=== PATIENT | female | born 1945 | race Caucasian/White ===

== ENCOUNTER 2017-01-31 07:30 | Inpatient (IN) | payer MEDICARE ==
--- NOTE | 2017-02-03 16:55 | HP ---
HISTORY AND PHYSICAL: DATE OF SURGERY: 02/09/17 PROCEDURE: Left total knee arthroplasty. CHIEF COMPLAINT: Left knee pain. HISTORY OF PRESENT ILLNESS: Ms. Turner is a 71-year-old female with complaints of left knee pain se condary to advanced osteoarthritis. She has failed conservative management and has elected to proce ed with a left total knee arthroplasty which is scheduled for 02/09/17. PAST MEDICAL HISTORY: Hypertension, asthma, high cholesterol, obesity, sleep apnea, CHF, diabetes, and hypothyroidism. PAST SURGICAL HISTORY: ORIF of the left elbow, hysterectomy, , bladder repair, hiatal malgorzata ia, left knee arthroscopy, bilateral lower extremity vein surgery, tonsillectomy, and appendectomy. CURRENT MEDICATIONS: 1. Lisinopril. 2. Levothyroxine. 3. Atorvastatin calcium. 4. Bumetanide. 5. Glipizide 10 mg twice a day. 6. Proctozone. 7. Lantus 14 units once a day. ALLERGIES: None. FAMILY HISTORY: Heart disease, diabetes, hypertension, lung cancer, rheumatoid arthritis. SOCIAL HISTORY: She is a 71-year-old female. She lives with her . She does not smoke or Rivalry drugs. Uses very occasional alcohol. REVIEW OF SYSTEMS: A complete 14-point review of systems was reviewed with the patient, was positiv e for diabetes and thyroid disease, as well as some mild shortness of breath with walking long dista nces. She denies any anesthesia problems, DVT, PE, hepatitis C, HIV or MRSA. PHYSICAL EXAMINATION GENERAL: She is a 71-year-old obese female. She is in no acute distress. VITAL SIGNS: She stands 5 feet 8 inches tall, weighs 268 pounds. Her blood pressure is 124/82. He r heart rate is 82. HEENT: Normocephalic, atraumatic. NECK: Supple. No palpable lymph nodes. Trachea is midline. PULMONARY: The lungs are clear to auscultation bilaterally. CARDIO: Regular rate and rhythm. Strong S1, S2. ABDOMEN: Soft, nontender, nondistended. NEUROLOGIC: She is alert and oriented x3. Cranial nerves II through XII are intact. MUSCULOSKELETAL: Left lower extremity, the skin is intact. She has tenderness over the medial and lateral joint line. She has [id number] joint effusion. She has full range of motion of the le ft knee. Her lower extremity muscle group strengths are intact at 5/5. She has 2+ dorsalis pedis p ulses and intact sensation. ASSESSMENT AND PLAN: Ms. Turner is a 71-year-old female with complaints of left knee pain secondar y to advanced osteoarthritis. She has failed conservative management and has elected to proceed wit h left total knee arthroplasty which is scheduled for 02/09/[address] Ortiz discussed the risks and the benefits of the surgery at today's visit. All of her questions were answered. Per cocet, Coumadin, and Colace were all sent to her pharmacy for DVT prophylaxis and pain control. A p rescription for a 4-wheeled walker was also prescribed for walking assistance following the surgery. She will follow up with Dr. Ortiz 10 to 14 days after the surgery. KHARI MAYNARD [id number]/[facility] #: [id number]
[2017-02-09] MEDS ORDERED: Levalbuterol 0.63MG/3ML NEB INH ONE (06:00)
[2017-02-09] MEDS ORDERED: Famotidine IV* 10 MG/ML 2 ML (20 mg) IV ONE (06:00)
[2017-02-09] MEDS ORDERED: Buffered Lidocaine 1% SYRIN* 3 ML/SYR SYRINGE INTRADERM ONE (06:00)
[2017-02-09] MEDS ORDERED: Metoclopramide TAB* 10 MG PO ONE (06:00)
[2017-02-09] MEDS ORDERED: Famotidine IV* 10 MG/ML 2 ML (20 mg) ONE (11:14)
[2017-02-09] MEDS ORDERED: Levalbuterol 1.25MG/0.5ML NEB ONE (11:14)
[2017-02-09] MEDS ORDERED: ceFAZolin 2 GM PREMIX(*) 2 GM/50 ML BAG IVPB ONE (11:14)
[2017-02-09] MEDS ORDERED: ceFAZolin 1 GM in Dextrose (*) 1 GM/50 ML BAG IVPB ONE (11:14)
[2017-02-09] MEDS ORDERED: Metoclopramide TAB* 10 MG ONE (11:14)
[2017-02-09] MEDS ORDERED: KETAMINE HCL* 50 MG/ML 10 ML VIAL ONE (14:16)
[2017-02-09] MEDS ORDERED: Propofol* 10 MG/ML 20 ML BTL IV PUSH ONE (14:16)
[2017-02-09] MEDS ORDERED: Ketorolac INJ* 30 MG/ML 1 ML VIAL ONE (14:16)
[2017-02-09] MEDS ORDERED: fentaNYL* 50 MCG/ML 2 ML VIAL (100 MCG VIAL) ONE ×2 (14:16→18:18)
[2017-02-09] MEDS ORDERED: Bupivacaine 0.5% SDV PF* 30 ML VIAL ONE ×2 (14:16→16:12)
[2017-02-09] MEDS ORDERED: Midazolam* 1 MG/ML 5 ML VIAL (5 MG) ONE (14:16)
[2017-02-09] MEDS ORDERED: Morphine PF AMP (0.5MG/ML)* 5 MG/10 ML AMP ONE (14:16)
[2017-02-09] MEDS ORDERED: Dexamethasone IV* 4 MG/ML 1 ML (4 MG) ONE (14:16)
[2017-02-09] MEDS ORDERED: Lidocaine 2% PF* 5 ML VIAL ONE (14:16)
[2017-02-09] MEDS ORDERED: Ondansetron INJ* 2 MG/ML VIAL ONE (14:16)
[2017-02-09] MEDS ORDERED: oxyCODONE/Acetamin 5/325 MG* TAB PO PRN (15:54)
[2017-02-09] MEDS ORDERED: Bisacodyl SUPP* 10 MG SUPP PR PRN (15:54)
[2017-02-09] MEDS ORDERED: Polyethylene Glycol 3350* 17 GM PACKET PO PRN (15:54)
[2017-02-09] MEDS ORDERED: Ondansetron TAB* 4 MG PO PRN (15:54)
[2017-02-09] MEDS ORDERED: oxyCODONE TAB* 5 MG TAB PO PRN (15:54)
[2017-02-09] MEDS ORDERED: Acetaminophen TAB* 325 MG PO PRN (15:54)
[2017-02-09] MEDS ORDERED: diPHENhydraMINE IV* 50 MG/ML 1 ml VIAL (BENADRYL) IV PRN (15:54)
[2017-02-09] MEDS ORDERED: LACTULOSE* 30 ML UDC PO PRN (15:54)
[2017-02-09] MEDS ORDERED: Morphine INJ* 2 MG/ML 1 ML SYRINGE IV PRN (15:54)
[2017-02-09] MEDS ORDERED: Cisatracurium* 2 MG/ML MDV 5 ML ONE (16:06)
[2017-02-09] MEDS ORDERED: fentaNYL* 50 MCG/ML 5 ML VIAL (250 MCG VIAL) ONE ×2 (16:07→19:00)
[2017-02-09] MEDS ORDERED: Levalbuterol HFA INHALER* 1 PUFF MDI ONE (16:31)
[2017-02-09] MEDS ORDERED: hydrALAZINE IV* 20 MG/ML VIAL ONE (17:27)
[2017-02-09] MEDS ORDERED: Levalbuterol 0.63MG/3ML NEB INH PRN (17:32)
[2017-02-09] MEDS ORDERED: HYDROmorphone* 1 MG/ML 1 ML SYR IV PRN (17:32)
[2017-02-09] MEDS ORDERED: Ondansetron INJ* 2 MG/ML VIAL IV PRN (17:32)
[2017-02-09] MEDS ORDERED: Atorvastatin* 10 MG TAB PO SCH (18:00)
[2017-02-09] MEDS ORDERED: HYDROmorphone* 1 MG/ML 1 ML SYR ONE (18:59)
[2017-02-09] MEDS: fentaNYL* 50 MCG/ML 2 ML VIAL (100 MCG VIAL) IV PRN ×4 (19:01→20:10)
[2017-02-09] MEDS ORDERED: Dextrose 50% Syringe 50 ML* 25 GM/50 ML SYRINGE IV PUSH PRN (19:35)
[2017-02-09] MEDS ORDERED: oxyCODONE/Acetamin 5/325 MG* TAB ONE (19:49)
[2017-02-09] MEDS: oxyCODONE/Acetamin 5/325 MG* TAB PO PRN (19:50)
--- NOTE | 2017-02-09 20:06 | RAD ---
Indication: Post LEFT total knee replacement. Comparison: November 01, 2016 Technique: Portable AP and cross table lateral views LEFT knee. Report: Status post LEFT total knee replacement. Anterior surgical drain in place. Post-op fluid and gas is seen in the joint space and anterior subcutaneous tissues. Alignment is anatomic. No periprosthetic fracture evident. IMPRESSION: Normal post-op appearance following LEFT total knee replacement.
[2017-02-09] MEDS ORDERED: Insulin GLARGINE(*) 1 UNITS UNIT SUBCUT SCH (21:00)
[2017-02-09] MEDS ORDERED: Warfarin TAB(*) 6 MG PO ONE (22:00)
[2017-02-09] MEDS: glipiZIDE TAB* 5 MG PO SCH (22:13)
[2017-02-09] MEDS: Docusate CAP* 100 MG PO SCH (22:13)
[2017-02-09] MEDS: Albuterol HFA INHALER* 8 gm MDI INH SCH (22:14)
[2017-02-09] MEDS: ceFAZolin 1 GM in Dextrose (*) 1 GM/50 ML BAG IVPB SCH (22:15)
[2017-02-09] MEDS: Atorvastatin* 10 MG TAB PO SCH (22:26)
--- NOTE | 2017-02-10 00:34 | CONS ---
MEDICAL CONSULTATION: DATE OF CONSULT: 02/09/17 PRIMARY CARE PROVIDER: Dr. Kramer. PRIMARY SENIOR RESEARCH PROJECT MANAGER: Dr. Hughes. REQUESTING PROVIDER: Dr. Scarlett Ortiz. CONSULTING PROVIDER: KHARI Ortiz. SUPERVISING PHYSICIAN: Dr. Rikki Hamilton. CHIEF COMPLAINT: Status post left total knee replacement. HISTORY OF PRESENT ILLNESS: This is a 71-year-old female with a fairly complicated medical history including poorly controlled insulin-dependent diabetes, obstructive sleep apnea, morbid obesity, hypothyroidism, diabetic neuropathy, hypertension, hyperlipidemia, and mild persistent asthma who presented for left total knee arthroplasty with Dr. Ortiz earlier today. Dr. Ortiz has requested consultation from hospitalist group to aid in medical co- management during her postoperative recovery. The patient underwent general anesthesia and is still quite lethargic at the time of interview. She is reporting pain in her knee. Denies chest pain, shortness of breath, abdominal pain, nausea, or vomiting. She was evaluated by both her primary care provider as well as bander and cellophaner helper machine, Dr. Hughes, preoperatively without acute concerns. In regards to her cardiac history, she had an EKG done preoperatively that showed some poor R-wave progression and was therefore referred for evaluation with Dr. Hughes. She underwent cardiac catheterization in 2002, which was unremarkable and has had no recent cardiac symptoms. Dr. Hughes did not recommend preoperative stress testing. PAST MEDICAL HISTORY: 1. Insulin-dependent diabetes - poorly controlled. 2. Morbid obesity. 3. Hypertension. 4. Hyperlipidemia. 5. Asthma - mild persistent. 6. Obstructive sleep apnea, compliant with CPAP. 7. Hypothyroidism. 8. Diabetic neuropathy. SURGICAL HISTORY: 1. Left elbow ORIF. 2. Hysterectomy. 3. . 4. Bladder repair. 5. Hiatal hernia. 6. Left knee arthroscopy. 7. Bilateral vein surgery. 8. Tonsillectomy. 9. Appendectomy. HOME MEDICATIONS: 1. Levothyroxine 50 mcg p.o. on Monday, Monday, , and Monday and 75 mcg on Monday, Monday, Monday. 2. Albuterol 2 puffs inhaled at bedtime. 3. Aspirin 325 mg p.o. daily. 4. Atorvastatin 10 mg p.o. daily. 5. Bumex 1 mg p.o. daily. 6. Vitamin D3 1000 units p.o. daily. 7. Flexeril 10 mg p.o. twice daily as needed for pain. 8. Glipizide 10 mg p.o. b.i.d. 9. Hydrocortisone 2.5% cream applied topically as needed. 10. Ibuprofen 800 mg p.o. daily. 11. Lantus 14 units subcu daily. 12. Lisinopril 5 mg p.o. daily. 13. Multivitamin 1 tablet p.o. daily. SOCIAL HISTORY: The patient has no history of smoking or alcohol consumption on a regular basis. REVIEW OF SYSTEMS: As noted above in HPI and otherwise negative. PHYSICAL EXAM: Most recent vitals: Temperature 96.8 degrees Fahrenheit, pulse 78 beats per minute, respiratory rate 15, oxygen saturation 96% on 5 L, and blood pressure 148/74 mmHg. General: This is a pleasant 71-year-old female who is in the recovery area who appears lethargic, but responds appropriately to questions. HEENT: Head is normocephalic, atraumatic with moist mucous membranes. Cardiovascular: Heart has a regular rate and rhythm without murmurs , rubs, or gallops. Respiratory: Lungs are clear to auscultation without wheezes, crackles, or rhonchi. Abdomen: Soft and nontender to palpation. Extremities: Trace edema. Distal pulses intact. Skin: Limited exam shows no concerning rashes or lesions. Psych: The patient is alert and appropriately oriented. LABORATORY EVALUATION: Reviewed labs from 02/03/17 which were essentially within normal limits including a CBC and a basic metabolic panel. Preop hemoglobin of 13.6 g/dL and a creatinine of 0.84. IMAGING: Preop EKG showed sinus rhythm with poor R-wave progression. ASSESSMENT AND PLAN: This is a 71-year-old female with a history of morbid obesity, insulin-dependent diabetes, diabetic neuropathy, hypothyroidism, obstructive sleep apnea, hypertension, hyperlipidemia, and mild persistent asthma who underwent left total knee replacement by Dr. Ortiz earlier today. Hospitalist group has been asked to consult for medical co-management postoperatively. 1. Status post left total knee replacement - management per Orthopedic Surgery group including pain management, discharge planning, and DVT prophylaxis. 2. Hypertension - the patient is noted to be intermittently hypertensive postoperatively, but blood pressure appears to be responding well to medical management of her pain. Recommend holding lisinopril in the morning and may be able to resume on postop day 2. 3. Insulin-dependent diabetes - last hemoglobin A1c from 01/03/17 shows result of 9.3% indicating poor control. The patient reports that her fasting blood glucose is between 100 and 120 mg/dL. We will continue her home dose of Lantus as well as sliding scale Humalog during her hospital stay. Hold glipizide. 4. Obstructive sleep apnea - the patient brought her CPAP machine with her and this has been ordered. 5. Morbid obesity with a BMI of 41. 6. Hyperlipidemia - continue statin. 7. Asthma - mild persistent. The patient uses her albuterol inhaler nightly. No wheezing appreciated on lung exam and the patient denies shortness of breath or cough. 8. Hypothyroidism: Continue levothyroxine. 9. Diabetic neuropathy. 10. Code status: The patient is full code. 11. DVT prophylaxis per orthopedic surgeon. It appears that Lovenox and Coumadin have been ordered. DISPOSITION: Hospitalist group will continue to follow along with this patient during her postoperative course. KHARI ORTIZ CC: Dr. Kramer* [id number]/[facility] #: [id number] NICOLE
[2017-02-10] MEDS: oxyCODONE/Acetamin 5/325 MG* TAB PO PRN ×6 (00:52→22:16)
[2017-02-10] MEDS ORDERED: Albuterol HFA INHALER* 8 gm MDI INH PRN (03:44)
[2017-02-10] MEDS: ceFAZolin 1 GM in Dextrose (*) 1 GM/50 ML BAG IVPB SCH ×2 (05:42→14:43)
[2017-02-10] MEDS: Levothyroxine TAB* 75 MCG TAB PO SCH (05:42)
[2017-02-10 06:34] LABS: Hematocrit 32 % (35-47); Hemoglobin 10.6 g/dl (12.0-16.0)
[2017-02-10 06:52] LABS: BUN/Creatinine Ratio 22.8 (8-20); Calcium 7.9 mg/dL (8.6-10.3); EGFR Non-African American 71.5 (>60); Potassium 4.6 mmol/L (3.5-5.0)
[2017-02-10] MEDS: Ascorbic Acid TAB* 500 MG PO SCH (08:42)
[2017-02-10] MEDS: Docusate CAP* 100 MG PO SCH ×2 (08:42→20:18)
[2017-02-10] MEDS: Insulin LISPRO* 1 UNITS UNIT SUBCUT SCH ×3 (08:42→18:10)
[2017-02-10] MEDS: glipiZIDE TAB* 5 MG PO SCH ×2 (08:42→20:18)
[2017-02-10] MEDS ORDERED: Lisinopril TAB* 5 MG PO SCH (09:00)
--- NOTE | 2017-02-10 09:08 | PN ---
Progress Note - Progress Note SOAP: Subjective: patient resting comfortably with no complaints Objective: Vital Signs Temp Pulse Resp BP Pulse Ox 97.6 F 66 16 110/58 98 02/10/17 07:52 02/10/17 07:52 02/10/17 07:52 02/10/17 07:52 02/10/17 07:52 Laboratory Last Values Hgb 10.6 g/dl (12.0-16.0) L 02/10/17 06:20 Hct 32 % (35-47) L 02/10/17 06:20 INR (Anticoag Therapy) 0.98 (0.89-1.11) 02/10/17 06:20 Sodium 132 mmol/L (133-145) L 02/10/17 06:20 Potassium 4.6 mmol/L (3.5-5.0) 02/10/17 06:20 Chloride 100 mmol/L (101-111) L 02/10/17 06:20 Carbon Dioxide 26 mmol/L (22-32) 02/10/17 06:20 Anion Gap 6 mmol/L (2-11) 02/10/17 06:20 BUN 18 mg/dL (6-24) 02/10/17 06:20 Creatinine 0.79 mg/dL (0.51-0.95) 02/10/17 06:20 Est GFR ( Amer) 92.0 (>60) 02/10/17 06:20 Est GFR (Non-Af Amer) 71.5 (>60) 02/10/17 06:20 BUN/Creatinine Ratio 22.8 (8-20) H 02/10/17 06:20 Glucose 280 mg/dL (70-100) H 02/10/17 06:20 POC Glucose (mg/dL) 238 mg/dL (74-106) H 02/09/17 22:23 Calcium 7.9 mg/dL (8.6-10.3) L 02/10/17 06:20 incision: c/d/i PE: intact B/L LE strengths, intact sensation, 2+ DP pulses Assessment: s/p left TKA Plan: 1) continue PT/OT-WBAT 2) continue Coumadin/ Lovenox/ SCD's for DVT prophylaxis; INR today 0.98; will give 8 mg tonight 3) Home tomorrow or Monday
--- NOTE | 2017-02-10 13:27 | PN ---
Subjective Date of Service: 02/10/17 Interval History: This is 71 yo female POD #1 s/p L TKR. Hospitalist is co-managing medical comorbidities. Patient reports good pain control. She is nauseated this am. Also note that she has been hyperglycemic. She denies cough, SOB, abd pain, vomiting and diarrhea. Objective Active Medications: Acetaminophen (Tylenol Tab*) 650 mg PO Q4H PRN PRN Reason: PAIN OR TEMPERATURE Albuterol (Ventolin Hfa Inhaler*) 2 puff INH BEDTIME [facility] Last Admin: 02/09/17 22:14 Dose: 2 puff Albuterol (Ventolin Hfa Inhaler*) 2 puff INH Q4H PRN PRN Reason: SHORTNESS OF BREATH Ascorbic Acid (Vitamin C Tab*) 500 mg PO QAM [facility] Last Admin: 02/10/17 08:42 Dose: 500 mg Atorvastatin Calcium (Lipitor*) 10 mg PO 1800 [facility] Last Admin: 02/09/17 22:26 Dose: 10 mg Bisacodyl (Dulcolax Supp*) 10 mg FL DAILY PRN PRN Reason: constipation Dextrose (D50w Syringe 50 Ml*) 12.5 gm IV PUSH .FOR FS < 60 - SS PRN PRN Reason: FS < 60 Diphenhydramine HCl (Benadryl Iv*) 12.5 mg IV Q6H PRN PRN Reason: PRURITIS Docusate Sodium (Colace Cap*) 100 mg PO BID [facility] Last Admin: 02/10/17 08:42 Dose: 100 mg Enoxaparin Sodium (Lovenox(*)) 30 mg SUBCUT Q24H [facility] Glipizide (Glucotrol Tab*) 10 mg PO BID [facility] Last Admin: 02/10/17 08:42 Dose: 10 mg Cefazolin Sodium/Dextrose (Kefzol 1 Gm In Dextrose Duplex (*)) 1 gm in 50 mls @ 200 mls/hr IVPB Q8H [facility] Stop: 02/10/17 14:14 Last Admin: 02/10/17 05:42 Dose: 200 mls/hr Lactated Ringer's (Lactated Ringers 1000 Ml Bag*) 1,000 mls @ 100 mls/hr IV PER RATE [facility] Last Admin: 02/09/17 21:17 Dose: 100 mls/hr Insulin Glargine (Lantus(*)) 14 units SUBCUT BEDTIME [facility] Last Admin: 02/09/17 22:26 Dose: 14 units Insulin Human Lispro (Humalog*) 0 units SUBCUT AC [facility] PRN Reason: Protocol Last Admin: 02/10/17 13:02 Dose: 9 unit Lactulose (Lactulose*) 30 ml PO Q6H PRN PRN Reason: constipation Levothyroxine Sodium (Synthroid Tab*) 50 mcg PO SuTuThSa@0600 ILYA Levothyroxine Sodium (Synthroid Tab*) 75 mcg PO MoWeFr@0600 [facility] Last Admin: 02/10/17 05:42 Dose: 75 mcg Magnesium Hydroxide (Milk Of Magnesia Liq*) 30 ml PO Q6H PRN PRN Reason: constipation Morphine Sulfate (Morphine Inj (Syringe)*) 2 mg IV Q2H PRN PRN Reason: PAIN Ondansetron HCl (Zofran Tab*) 4 mg PO Q6H PRN PRN Reason: NAUSEA Last Admin: 02/10/17 11:52 Dose: 4 mg Oxycodone HCl (Roxycodone Tab*) 10 mg PO Q4H PRN PRN Reason: SEVERE PAIN Oxycodone/Acetaminophen (Percocet 5/325 Tab*) 1 tab PO Q3H PRN PRN Reason: PAIN - MODERATE Oxycodone/Acetaminophen (Percocet 5/325 Tab*) 2 tab PO Q3H PRN PRN Reason: PAIN - MODERATE Last Admin: 02/10/17 09:11 Dose: 2 tab Polyethylene Glycol/Electrolytes (Miralax*) 17 gm PO DAILY PRN PRN Reason: Constipation Warfarin Sodium (Coumadin Tab(*)) 8 mg PO ONCE@1700 ONE PRN Reason: Protocol Stop: 02/10/17 17:01 Vital Signs: Temp Pulse Resp BP Pulse Ox 97.9 F 64 16 108/51 95 02/10/17 11:49 02/10/17 11:49 02/10/17 11:49 02/10/17 11:49 02/10/17 11:49 Oxygen Devices in Use Now: None Appearance: Well appearing, in NAD. Accompanied by family Respiratory: Symmetrical Chest Expansion and Respiratory Effort, Clear to Auscultation Cardiovascular: NL Sounds; No Murmurs; No JVD, RRR Abdominal: NL Sounds; No Tenderness; No Distention Extremities: No Edema Neurological: Alert and Oriented x 3 Result Diagrams: 02/10/17 06:20 02/10/17 06:20 Assess/Plan/Problems-Billing Assessment: This is a 71 yo female with IDDM, HTN, asthma, HTN, HLD, ERA, hypothyroidism, diabetic neuropathy and morbid obesity who underwent L TKA by Dr Ortiz 02/09/17. Hospitalist group has been consulted for management of her comorbid conditions. - Patient Problems (1) Status post knee replacement Comment: POD #1 Management per ortho team Good pain control, some complaints of nausea (2) IDDM (insulin dependent diabetes mellitus) Comment: HgbA1c 01/02/17 9.3% Patient reports good glycemic control at home over the last few weeks Hyperglycemic postoperatively Plan to increase Lantus and cont SS Humalog coverage at mealtime (3) Hypertension Comment: Normotensive Resume lisinopril and Bumex tomorrow am (4) Asthma Comment: Mild persistent No acute exacerbation Cont albuterol prn (5) HLD (hyperlipidemia) (6) ERA (obstructive sleep apnea) Comment: Compliant with CPAP (7) Morbid obesity Comment: BMI 41 (8) Hypothyroidism Comment: Cont levothyroxine (9) Diabetic neuropathy (10) Full code status (11) DVT prophylaxis Comment: Lovenox and Coumadin per ortho Status and Disposition: Discharge planning per orthopedic surgery, no acute medical concerns
[2017-02-10] MEDS: Atorvastatin* 10 MG TAB PO SCH (16:36)
[2017-02-10] MEDS: Enoxaparin(*) 30 MG/0.3 ML SYR SUBCUT SCH (16:36)
[2017-02-10] MEDS ORDERED: Warfarin TAB(*) 4 MG PO ONE (17:00)
[2017-02-10] MEDS: Insulin GLARGINE(*) 1 UNITS UNIT SUBCUT SCH (20:19)
[2017-02-10] MEDS: Albuterol HFA INHALER* 8 gm MDI INH SCH (20:22)
--- NOTE | 2017-02-10 21:45 | OP ---
OPERATIVE REPORT: DATE OF OPERATION: 02/09/17 DATE OF : 43 SURGEON: Scarlett Ortiz MD CLOTHES IRONER: KHARI Contreras ANESTHESIOLOGIST: Dr. Fischer. ANESTHESIA: General. PRE-OP DIAGNOSES: Severe end-stage degenerative osteoarthritis of the left knee joint, left severe degenerative osteoarthritis, valgus deformity. POST-OP DIAGNOSIS: Severe end-stage degenerative osteoarthritis of the left knee joint. OPERATIVE PROCEDURE: Left total knee arthroplasty. HARDWARE USED: This is cemented [employer] hardware. Two packages of Simplex bone cement. F or the femur, a left size 5 narrow posterior stabilized femoral component with a tibia size 3 left t ibial base plate and 11 mm constrained articular insert size 3/4 and a 32, 3-peg all poly patella. COMPLICATIONS: None. TOURNIQUET TIME: 27 minutes. ESTIMATED BLOOD LOSS: 400 cc. SPECIMENS: Bone and cartilage from the left knee joint sent to pathology. BRIEF HISTORY/INDICATIONS: Ms. Turner is a 71-year-old female with years of increasingly severe lef t knee pain and valgus deformity. She failed conservative treatment with the anti-inflammatories pa in medication, intraarticular injection and physical therapy. She elected to to undergo left total knee arthroplasty due to continued pain and decreased quality of life. Informed consent was obtained from the patient. She understood the risks of procedure included, but were not limited to bleeding, infection, damage to nearby structures, continued pain, need for furt her surgery, intraoperative fracture, nerve palsy, hardware failure or loosening, knee stiffness, lo ss of motions, stroke, heart attack, blood clot, and . She wished to proceed. INTRAOPERATIVE FINDINGS: Intraoperatively, the patient was noted to have 20 degree valgus deformity preoperatively. This was corrected to its anatomic valgus at the end of the case. 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 Severe degenerative osteoarthritis of the patellar and lateral compartment with continued loss of cartilage. DESCRIPTION OF PROCEDURE: Ms. Turner was identified in the preanesthesia unit. Her left lower extre mity was marked as the correct operative side. Informed consent was signed and placed in the chart. The patient was taken to the operating room and placed under general anesthesia without difficulty . Khan catheter was placed. Tourniquet was placed on the left thigh. The left lower extremity wa s prepped and draped in the usual sterile fashion. Preop time-out was made to correctly identify th e patient side and site. Appropriate preoperative antibiotics were given within 1 hour of incision. Tourniquet was inflated. A 10 blade was used make a 14 cm midline incision. This was carried down to the extensor mechanism. A new 10 blade used to make a standard medial parapatellar arthrotomy. Patella was subluxed laterally. Electrocautery was used to subperiosteally elevate soft tissue off the superomedial tibia. The knee was flexed up. Anterior horn of the lateral meniscus and ACL was sharply released. A drill was used to enter the distal femur. Intramedullary distal femoral cuttin g guide was placed. Distal femoral cut was made with an oscillating saw. The lateral femoral condy lar hypoplasia was noted and accounted for. At this point, it was noted that the tourniquet was a v enous tourniquet. Tourniquet was trend down. The extra rotational guide was placed on the distal f emur. Distal femur was sized to a size 5. Size 5 multi-cutting jig was pinned on the distal femur. Oscillating saw was used to make the appropriate 4 chamfer cuts. Any bony fragments were carefull y removed. The PCL was completely released. Tibia was subluxed anteriorly. Extramedullary tibial cutting guid e was pinned on the proximal tibia. Oscillating saw was used to make the proximal tibial cut perpen dicular to the mechanical axis of the tibia. The bone was carefully removed. The knee was brought o ut into full extension. There was lateral tightness and some MCL laxity, although the MCL was compet ent. 15 blade was used to perform conservative pie crusting technique laterally. Medial and lateral ligamentous balancing was much improved. The knee has full extension. The knee was flexed up. Fle xion and extension gaps were well balanced. Lamina associate partner was placed both medially and laterally. Electrocautery was used to remove any remai solis meniscus. Curette was used to remove any posterior osteophyte. Tibial tray and drop carolyn was p laced to once again confirm satisfactory proximal tibial cut. A trial left size 5 narrow femoral component was impacted on to the distal femur and had good fit. A trial 3 tibial tray and 9 mm insert was placed. The knee was taken through range of motion and no edward to have full extension and 120 degrees of flexion with good patellofemoral tracking. The patella was everted. 9 mm of patellar bone and cartilage was carefully removed with an oscillat ing saw. The patella was sized to a size 32. Three peg holes were drilled through the size 32 guid e. Trial 32 patella was placed and the knee was taken through a range of motion. The knee has good patellofemoral tracking. All trials were carefully removed at this point. The tibia was subluxed anteriorly and sized to a s ize 3. Proximal tibia was prepared using a keel punch. All bony cut surfaces were copiously irriga edward with sterile saline and dried. Final implants were cemented into place starting with the tibia followed by the femur and last the patella. An 11-mm insert trial was placed. The knee was brought out into full extension. The cement was allowed to fully cure. Tourniquet had been turned down on ce again for cementing technique. The tourniquet was trend down at a total of 27 minutes. Electroc autery was used to maintain meticulous hemostasis. The knee was copiously irrigated with sterile s evelyn. Once the cement was fully cured, the insert trial was removed. Any excess cement around the implant was carefully removed with a osteotome. Electrocautery was used to obtain meticulous hemosta sis. Final insert chosen was an 11 mm constrained articular insert size 3/4. This was locked into positi on on the tibial tray without difficulty. Stability of the insert was checked and rechecked and not ed to be stable. Final range of motion was full extension to 120 degrees of flexion with good alaniz lofemoral tracking. The knee was copiously irrigated with sterile saline. The extensor mechanism w as closed over a medium Hemovac drain using #1 Vicryl's. The rest of the incision was closed in a l ayered fashion using 0 and 2-0 Vicryl's. The skin was closed using running 3-0 nylon suture. Steri le Xeroform, 4x4s, and Webril were used to cover the incision. Scottie wrap and cold pack were placed o saulo this. The patient's anesthesia was reversed without difficulty. She was taken to the PACU in stable condit ion. Intended weightbearing will be weightbearing as tolerated. Intended DVT prophylaxis will be Co umadin with a Lovenox bridge. [id number]/[facility] #: [id number]
[2017-02-11] MEDS: oxyCODONE/Acetamin 5/325 MG* TAB PO PRN ×5 (02:37→22:17)
[2017-02-11] MEDS: Levothyroxine TAB* 50 MCG TAB PO SCH (05:39)
[2017-02-11] MEDS: Docusate CAP* 100 MG PO SCH ×2 (07:38→21:02)
[2017-02-11] MEDS: Lisinopril TAB* 5 MG PO SCH (07:39)
[2017-02-11] MEDS: Bumetanide TAB* 1 MG PO SCH ×2 (07:39→09:18)
[2017-02-11] MEDS: Ascorbic Acid TAB* 500 MG PO SCH (07:39)
[2017-02-11] MEDS: glipiZIDE TAB* 5 MG PO SCH ×2 (07:39→21:02)
[2017-02-11 07:53] LABS: Hematocrit 31 % (35-47); Hemoglobin 10.4 g/dl (12.0-16.0); Mean Platelet Volume 9 um3 (7.4-10.4)
[2017-02-11] MEDS: Insulin LISPRO* 1 UNITS UNIT SUBCUT SCH ×3 (09:18→17:32)
--- NOTE | 2017-02-11 09:58 | PN ---
Progress Note - Progress Note SOAP: Subjective: Pt. reports feeling tired, pain is moderate. Objective: LLE - dressing changed, inc c/d/i. distally nvi. min edema. Vital Signs: Temp Pulse Resp BP Pulse Ox 98.0 F 83 14 154/71 96 02/11/17 07:48 02/11/17 07:48 02/11/17 07:48 02/11/17 07:48 02/11/17 07:48 Laboratory Results - last 24 hr 02/10/17 02/10/17 02/10/17 12:12 16:56 20:04 Hgb Hct Plt Count MPV INR (Anticoag Therapy) POC Glucose (mg/dL) 256 H 184 H 204 H 02/11/17 02/11/17 02/11/17 07:38 07:38 07:38 Hgb 10.4 L Hct 31 L Plt Count 225 MPV 9 INR (Anticoag Therapy) 1.49 H POC Glucose (mg/dL) 203 H Assessment: 71 yo F pod 2 s/p LTKA Plan: wbat pt/ot 6 mg coumadin tonight with lovonx bridge plan d/c to home tomorrow 02/12 with vns
--- NOTE | 2017-02-11 11:17 | PN ---
Subjective Date of Service: 02/11/17 Interval History: Patient had some trouble with pain control overnight. It has improved this am. Noted hypertension overnight which seems to correspond with her pain. She denies cough, SOB, CP, abdominal pain, n/v today. Objective Active Medications: Acetaminophen (Tylenol Tab*) 650 mg PO Q4H PRN PRN Reason: PAIN OR TEMPERATURE Albuterol (Ventolin Hfa Inhaler*) 2 puff INH BEDTIME [facility] Last Admin: 02/10/17 20:22 Dose: 2 puff Albuterol (Ventolin Hfa Inhaler*) 2 puff INH Q4H PRN PRN Reason: SHORTNESS OF BREATH Ascorbic Acid (Vitamin C Tab*) 500 mg PO QAM [facility] Last Admin: 02/11/17 07:39 Dose: 500 mg Atorvastatin Calcium (Lipitor*) 10 mg PO 1800 [facility] Last Admin: 02/10/17 16:36 Dose: 10 mg Bisacodyl (Dulcolax Supp*) 10 mg AR DAILY PRN PRN Reason: constipation Bumetanide (Bumex Tab*) 1 mg PO QAM [facility] Last Admin: 02/11/17 09:18 Dose: 1 mg Dextrose (D50w Syringe 50 Ml*) 12.5 gm IV PUSH .FOR FS < 60 - SS PRN PRN Reason: FS < 60 Diphenhydramine HCl (Benadryl Iv*) 12.5 mg IV Q6H PRN PRN Reason: PRURITIS Docusate Sodium (Colace Cap*) 100 mg PO BID [facility] Last Admin: 02/11/17 07:38 Dose: 100 mg Enoxaparin Sodium (Lovenox(*)) 30 mg SUBCUT Q24H [facility] Last Admin: 02/10/17 16:36 Dose: 30 mg Glipizide (Glucotrol Tab*) 10 mg PO BID [facility] Last Admin: 02/11/17 07:39 Dose: 10 mg Lactated Ringer's (Lactated Ringers 1000 Ml Bag*) 1,000 mls @ 100 mls/hr IV PER RATE [facility] Last Admin: 02/09/17 21:17 Dose: 100 mls/hr Insulin Glargine (Lantus(*)) 20 units SUBCUT BEDTIME [facility] Last Admin: 02/10/17 20:19 Dose: 20 units Insulin Human Lispro (Humalog*) 0 units SUBCUT [facility] PRN Reason: Protocol Last Admin: 02/11/17 09:18 Dose: 6 unit Lactulose (Lactulose*) 30 ml PO Q6H PRN PRN Reason: constipation Levothyroxine Sodium (Synthroid Tab*) 50 mcg PO SuTuThSa@0600 [facility] Last Admin: 02/11/17 05:39 Dose: 50 mcg Levothyroxine Sodium (Synthroid Tab*) 75 mcg PO MoWeFr@0600 [facility] Last Admin: 02/10/17 05:42 Dose: 75 mcg Lisinopril (Prinivil Tab*) 5 mg PO DAILY [facility] Last Admin: 02/11/17 07:39 Dose: 5 mg Magnesium Hydroxide (Milk Of Magnesia Liq*) 30 ml PO Q6H PRN PRN Reason: constipation Morphine Sulfate (Morphine Inj (Syringe)*) 2 mg IV Q2H PRN PRN Reason: PAIN Ondansetron HCl (Zofran Tab*) 4 mg PO Q6H PRN PRN Reason: NAUSEA Last Admin: 02/10/17 11:52 Dose: 4 mg Oxycodone HCl (Roxycodone Tab*) 10 mg PO Q4H PRN PRN Reason: SEVERE PAIN Oxycodone/Acetaminophen (Percocet 5/325 Tab*) 1 tab PO Q3H PRN PRN Reason: PAIN - MODERATE Oxycodone/Acetaminophen (Percocet 5/325 Tab*) 2 tab PO Q3H PRN PRN Reason: PAIN - MODERATE Last Admin: 02/11/17 07:39 Dose: 2 tab Polyethylene Glycol/Electrolytes (Miralax*) 17 gm PO DAILY PRN PRN Reason: Constipation Vital Signs: Temp Pulse Resp BP Pulse Ox 98.0 F 83 14 154/71 96 02/11/17 07:48 02/11/17 07:48 02/11/17 07:48 02/11/17 07:48 02/11/17 07:48 Oxygen Devices in Use Now: None Appearance: Well appearing, in NAD Neck: NL Appearance and Movements; NL JVP Respiratory: Symmetrical Chest Expansion and Respiratory Effort, Clear to Auscultation Cardiovascular: NL Sounds; No Murmurs; No JVD, RRR Abdominal: NL Sounds; No Tenderness; No Distention Extremities: - - trace to 1+ edema in lower extremities Skin: No Rash or Ulcers Neurological: Alert and Oriented x 3 Result Diagrams: 02/11/17 07:38 02/10/17 06:20 Assess/Plan/Problems-Billing Assessment: This is a 71 yo female with IDDM, HTN, asthma, HTN, HLD, ERA, hypothyroidism, diabetic neuropathy and morbid obesity who underwent L TKA by Dr Ortiz 02/09/17. Hospitalist group has been consulted for management of her comorbid conditions. - Patient Problems (1) Status post knee replacement Comment: POD #2 Management per ortho team Some trouble with pain control overnight, now improved (2) IDDM (insulin dependent diabetes mellitus) Comment: HgbA1c 01/02/17 9.3% Patient reports good glycemic control at home over the last few weeks Hyperglycemic postoperatively Lantus was increased to 20U with SS Humalog at mealtime (3) Hypertension Comment: Hypertensive overnight in the setting of pain Lisinopril and Bumex restarted this am (4) Asthma Comment: Mild persistent No acute exacerbation Cont albuterol prn (5) HLD (hyperlipidemia) (6) ERA (obstructive sleep apnea) Comment: Compliant with CPAP (7) Morbid obesity Comment: BMI 41 (8) Hypothyroidism Comment: Cont levothyroxine (9) Diabetic neuropathy (10) Full code status (11) DVT prophylaxis Comment: Lovenox and Coumadin per ortho Status and Disposition: Discharge planning per orthopedic surgery, no acute medical concerns
[2017-02-11] MEDS: Atorvastatin* 10 MG TAB PO SCH (17:32)
[2017-02-11] MEDS: Enoxaparin(*) 30 MG/0.3 ML SYR SUBCUT SCH (17:32)
[2017-02-11] MEDS ORDERED: Warfarin TAB(*) 6 MG PO ONE (18:00)
[2017-02-11] MEDS: Insulin GLARGINE(*) 1 UNITS UNIT SUBCUT SCH (21:02)
[2017-02-11] MEDS: Albuterol HFA INHALER* 8 gm MDI INH SCH (21:19)
[2017-02-12] MEDS: oxyCODONE/Acetamin 5/325 MG* TAB PO PRN ×4 (03:20→19:32)
[2017-02-12] MEDS: Magnesium Hydroxide LIQ* 30 ML UDC PO PRN (03:24)
[2017-02-12] MEDS: Levothyroxine TAB* 50 MCG TAB PO SCH (06:43)
[2017-02-12 07:05] LABS: Hematocrit 26 % (35-47); Hemoglobin 8.8 g/dl (12.0-16.0)
[2017-02-12] MEDS: Ascorbic Acid TAB* 500 MG PO SCH (08:09)
[2017-02-12] MEDS: Insulin LISPRO* 1 UNITS UNIT SUBCUT SCH ×3 (08:09→17:29)
[2017-02-12] MEDS: Lisinopril TAB* 5 MG PO SCH (08:10)
[2017-02-12] MEDS: glipiZIDE TAB* 5 MG PO SCH ×2 (08:10→21:16)
[2017-02-12] MEDS: Docusate CAP* 100 MG PO SCH ×2 (08:10→21:17)
[2017-02-12] MEDS: Bumetanide TAB* 1 MG PO SCH (08:10)
--- NOTE | 2017-02-12 09:49 | PN ---
Progress Note - Progress Note SOAP: Subjective: Pt reports she is progressing, pain controlled. Per PT she is not ready for d/c today - safety concerns. Objective: LLE - dressing c/d/i. distally nvi. Vital Signs: Temp Pulse Resp BP Pulse Ox 97.7 F 92 16 155/69 94 02/12/17 08:14 02/12/17 08:14 02/12/17 08:14 02/12/17 08:14 02/12/17 08:14 Laboratory Results - last 24 hr 02/11/17 02/11/17 02/11/17 11:41 16:31 20:57 Hgb Hct INR (Anticoag Therapy) POC Glucose (mg/dL) 113 H 260 H 190 H 02/12/17 02/12/17 02/12/17 06:39 06:39 08:01 Hgb 8.8 L Hct 26 L INR (Anticoag Therapy) 2.12 H POC Glucose (mg/dL) 171 H Assessment: 71 yo F pod 3 s/p LTKA Plan: d/c lovenox, hold coumadin recheck inr in am cont pt/ot plan d/c to home with vns tomorrow
--- NOTE | 2017-02-12 11:26 | PN ---
Subjective Date of Service: 02/12/17 Interval History: Patient offers no new complaints. Pain is adequately controlled. No cough, SOB , CP. No abdominal pain, n/v. Objective Active Medications: Acetaminophen (Tylenol Tab*) 650 mg PO Q4H PRN PRN Reason: PAIN OR TEMPERATURE Albuterol (Ventolin Hfa Inhaler*) 2 puff INH BEDTIME [facility] Last Admin: 02/11/17 21:19 Dose: 2 puff Albuterol (Ventolin Hfa Inhaler*) 2 puff INH Q4H PRN PRN Reason: SHORTNESS OF BREATH Ascorbic Acid (Vitamin C Tab*) 500 mg PO QAM [facility] Last Admin: 02/12/17 08:09 Dose: 500 mg Atorvastatin Calcium (Lipitor*) 10 mg PO 1800 [facility] Last Admin: 02/11/17 17:32 Dose: 10 mg Bisacodyl (Dulcolax Supp*) 10 mg GA DAILY PRN PRN Reason: constipation Bumetanide (Bumex Tab*) 1 mg PO QAM [facility] Last Admin: 02/12/17 08:10 Dose: Not Given Dextrose (D50w Syringe 50 Ml*) 12.5 gm IV PUSH .FOR FS < 60 - SS PRN PRN Reason: FS < 60 Diphenhydramine HCl (Benadryl Iv*) 12.5 mg IV Q6H PRN PRN Reason: PRURITIS Docusate Sodium (Colace Cap*) 100 mg PO BID [facility] Last Admin: 02/12/17 08:10 Dose: 100 mg Glipizide (Glucotrol Tab*) 10 mg PO BID [facility] Last Admin: 02/12/17 08:10 Dose: 10 mg Lactated Ringer's (Lactated Ringers 1000 Ml Bag*) 1,000 mls @ 100 mls/hr IV PER RATE [facility] Last Admin: 02/09/17 21:17 Dose: 100 mls/hr Insulin Glargine (Lantus(*)) 20 units SUBCUT BEDTIME [facility] Last Admin: 02/11/17 21:02 Dose: 20 units Insulin Human Lispro (Humalog*) 0 units SUBCUT AC [facility] PRN Reason: Protocol Last Admin: 02/12/17 08:09 Dose: 3 unit Lactulose (Lactulose*) 30 ml PO Q6H PRN PRN Reason: constipation Last Admin: 02/12/17 08:09 Dose: 30 ml Levothyroxine Sodium (Synthroid Tab*) 50 mcg PO SuTuThSa@0600 [facility] Last Admin: 02/12/17 06:43 Dose: 50 mcg Levothyroxine Sodium (Synthroid Tab*) 75 mcg PO MoWeFr@0600 [facility] Last Admin: 02/10/17 05:42 Dose: 75 mcg Lisinopril (Prinivil Tab*) 5 mg PO DAILY [facility] Last Admin: 02/12/17 08:10 Dose: 5 mg Magnesium Hydroxide (Milk Of Magnesia Liq*) 30 ml PO Q6H PRN PRN Reason: constipation Last Admin: 02/12/17 03:24 Dose: 30 ml Morphine Sulfate (Morphine Inj (Syringe)*) 2 mg IV Q2H PRN PRN Reason: PAIN Ondansetron HCl (Zofran Tab*) 4 mg PO Q6H PRN PRN Reason: NAUSEA Last Admin: 02/10/17 11:52 Dose: 4 mg Oxycodone HCl (Roxycodone Tab*) 10 mg PO Q4H PRN PRN Reason: SEVERE PAIN Oxycodone/Acetaminophen (Percocet 5/325 Tab*) 1 tab PO Q3H PRN PRN Reason: PAIN - MODERATE Oxycodone/Acetaminophen (Percocet 5/325 Tab*) 2 tab PO Q3H PRN PRN Reason: PAIN - MODERATE Last Admin: 02/12/17 08:14 Dose: 2 tab Pharmacy Profile Note (Coumadin Daily Reminder*) 0 note FOLLOW UP 1700 [facility] Polyethylene Glycol/Electrolytes (Miralax*) 17 gm PO DAILY PRN PRN Reason: Constipation Vital Signs: Temp Pulse Resp BP Pulse Ox 97.7 F 92 18 155/69 94 02/12/17 08:14 02/12/17 08:14 02/12/17 10:14 02/12/17 08:14 02/12/17 08:14 Oxygen Devices in Use Now: None Appearance: Well appearing, NAD Neck: NL Appearance and Movements; NL JVP Respiratory: Symmetrical Chest Expansion and Respiratory Effort, Clear to Auscultation Cardiovascular: NL Sounds; No Murmurs; No JVD, RRR Abdominal: NL Sounds; No Tenderness; No Distention Extremities: - - mild edema Skin: No Rash or Ulcers Neurological: Alert and Oriented x 3 Result Diagrams: 02/12/17 06:39 02/10/17 06:20 Assess/Plan/Problems-Billing Assessment: This is a 71 yo female with IDDM, HTN, asthma, HTN, HLD, ERA, hypothyroidism, diabetic neuropathy and morbid obesity who underwent L TKA by Dr Ortiz 02/09/17. Hospitalist group has been consulted for management of her comorbid conditions. - Patient Problems (1) Status post knee replacement Comment: POD #3 Management per ortho team Pain control improved (2) IDDM (insulin dependent diabetes mellitus) Comment: HgbA1c 01/02/17 9.3% Patient reports good glycemic control at home over the last few weeks Hyperglycemic postoperatively Lantus was increased to 20U with SS Humalog at mealtime (3) Hypertension Comment: Now normotensive Lisinopril and Bumex resumed (4) Asthma Comment: Mild persistent No acute exacerbation Cont albuterol prn (5) HLD (hyperlipidemia) (6) ERA (obstructive sleep apnea) Comment: Compliant with CPAP (7) Morbid obesity Comment: BMI 41 (8) Hypothyroidism Comment: Cont levothyroxine (9) Diabetic neuropathy (10) Full code status (11) DVT prophylaxis Comment: Lovenox and Coumadin per ortho Status and Disposition: Discharge planning per orthopedic surgery, no acute medical concerns
[2017-02-12] MEDS: Atorvastatin* 10 MG TAB PO SCH (17:29)
[2017-02-12] MEDS: Albuterol HFA INHALER* 8 gm MDI INH SCH (21:17)
[2017-02-12] MEDS: Insulin GLARGINE(*) 1 UNITS UNIT SUBCUT SCH (21:19)
[2017-02-13] MEDS: oxyCODONE/Acetamin 5/325 MG* TAB PO PRN ×4 (00:08→12:36)
[2017-02-13] MEDS: Levothyroxine TAB* 75 MCG TAB PO SCH (05:54)
[2017-02-13 07:27] LABS: Hematocrit 25 % (35-47); Hemoglobin 8.5 g/dl (12.0-16.0)
[2017-02-13] MEDS: Docusate CAP* 100 MG PO SCH (07:50)
[2017-02-13] MEDS: Ascorbic Acid TAB* 500 MG PO SCH (07:50)
[2017-02-13] MEDS: Lisinopril TAB* 5 MG PO SCH (07:50)
[2017-02-13] MEDS: glipiZIDE TAB* 5 MG PO SCH (07:50)
[2017-02-13] MEDS: Insulin LISPRO* 1 UNITS UNIT SUBCUT SCH ×2 (07:51→12:36)
[2017-02-13] MEDS: Bumetanide TAB* 1 MG PO SCH (07:52)
[2017-02-13] MEDS: Magnesium Hydroxide LIQ* 30 ML UDC PO PRN (09:32)
--- NOTE | 2017-02-13 09:48 | PN ---
Progress Note - Progress Note SOAP: Subjective: []Patient is seen at bedside. Feels better today and ready to go home. Objective: [] Vital Signs Temp 97.8 F 02/13/17 07:44 Pulse 80 02/13/17 07:44 Resp 16 02/13/17 09:43 BP 118/96 02/13/17 07:44 Pulse Ox 95 02/13/17 07:44 Intake & Output 02/12/17 02/13/17 02/13/17 18:59 06:59 18:59 Intake Total 660 1400 Output Total 425 800 Balance 235 600 Intake: Oral 660 1400 Output: Urine 425 800 Other: Estimated Void Medium Laboratory Results - last 24 hr 02/12/17 02/12/17 02/12/17 11:52 17:08 21:06 Hgb Hct INR (Anticoag Therapy) POC Glucose (mg/dL) 172 H 202 H 179 H 02/13/17 02/13/17 02/13/17 06:45 06:45 07:31 Hgb 8.5 L Hct 25 L INR (Anticoag Therapy) 1.67 H POC Glucose (mg/dL) 167 H Left knee incision is dry and intact calf mild tenderness, no edema, Ziyad's negative +DF/PF left ankle neurovascularly intact Assessment: []s/p Left total knee arthroplasty POD #4 Plan: []PT this am Home this afternoon with VNS
[2017-02-13 12:19] VITALS: BP 116/72
--- NOTE | 2017-02-13 12:20 | PN ---
Subjective Date of Service: 02/13/17 Interval History: Plan for discharge home today. Patient offers no acute complaints. Objective Active Medications: Acetaminophen (Tylenol Tab*) 650 mg PO Q4H PRN PRN Reason: PAIN OR TEMPERATURE Albuterol (Ventolin Hfa Inhaler*) 2 puff INH BEDTIME [facility] Last Admin: 02/12/17 21:17 Dose: 2 puff Albuterol (Ventolin Hfa Inhaler*) 2 puff INH Q4H PRN PRN Reason: SHORTNESS OF BREATH Ascorbic Acid (Vitamin C Tab*) 500 mg PO QAM [facility] Last Admin: 02/13/17 07:50 Dose: 500 mg Atorvastatin Calcium (Lipitor*) 10 mg PO 1800 [facility] Last Admin: 02/12/17 17:29 Dose: 10 mg Bisacodyl (Dulcolax Supp*) 10 mg [place] DAILY PRN PRN Reason: constipation Bumetanide (Bumex Tab*) 1 mg PO QAM [facility] Last Admin: 02/13/17 07:52 Dose: Not Given Dextrose (D50w Syringe 50 Ml*) 12.5 gm IV PUSH .FOR FS < 60 - SS PRN PRN Reason: FS < 60 Diphenhydramine HCl (Benadryl Iv*) 12.5 mg IV Q6H PRN PRN Reason: PRURITIS Docusate Sodium (Colace Cap*) 100 mg PO BID [facility] Last Admin: 02/13/17 07:50 Dose: 100 mg Glipizide (Glucotrol Tab*) 10 mg PO BID [facility] Last Admin: 02/13/17 07:50 Dose: 10 mg Lactated Ringer's (Lactated Ringers 1000 Ml Bag*) 1,000 mls @ 100 mls/hr IV PER RATE [facility] Last Admin: 02/09/17 21:17 Dose: 100 mls/hr Insulin Glargine (Lantus(*)) 20 units SUBCUT BEDTIME [facility] Last Admin: 02/12/17 21:19 Dose: 20 units Insulin Human Lispro (Humalog*) 0 units SUBCUT AC [facility] PRN Reason: Protocol Last Admin: 02/13/17 07:51 Dose: 3 unit Lactulose (Lactulose*) 30 ml PO Q6H PRN PRN Reason: constipation Last Admin: 02/12/17 08:09 Dose: 30 ml Levothyroxine Sodium (Synthroid Tab*) 50 mcg PO SuTuThSa@0600 [facility] Last Admin: 02/12/17 06:43 Dose: 50 mcg Levothyroxine Sodium (Synthroid Tab*) 75 mcg PO MoWeFr@0600 [facility] Last Admin: 02/13/17 05:54 Dose: 75 mcg Lisinopril (Prinivil Tab*) 5 mg PO DAILY [facility] Last Admin: 02/13/17 07:50 Dose: 5 mg Magnesium Hydroxide (Milk Of Magnesia Liq*) 30 ml PO Q6H PRN PRN Reason: constipation Last Admin: 02/13/17 09:32 Dose: 30 ml Morphine Sulfate (Morphine Inj (Syringe)*) 2 mg IV Q2H PRN PRN Reason: PAIN Ondansetron HCl (Zofran Tab*) 4 mg PO Q6H PRN PRN Reason: NAUSEA Last Admin: 02/10/17 11:52 Dose: 4 mg Oxycodone HCl (Roxycodone Tab*) 10 mg PO Q4H PRN PRN Reason: SEVERE PAIN Oxycodone/Acetaminophen (Percocet 5/325 Tab*) 1 tab PO Q3H PRN PRN Reason: PAIN - MODERATE Oxycodone/Acetaminophen (Percocet 5/325 Tab*) 2 tab PO Q3H PRN PRN Reason: PAIN - MODERATE Last Admin: 02/13/17 07:43 Dose: 2 tab Pharmacy Profile Note (Coumadin Daily Reminder*) 0 note FOLLOW UP 1700 [facility] Last Admin: 02/12/17 17:31 Dose: Not Given Polyethylene Glycol/Electrolytes (Miralax*) 17 gm PO DAILY PRN PRN Reason: Constipation Vital Signs: Temp Pulse Resp BP Pulse Ox 97.8 F 80 16 118/96 95 02/13/17 07:44 02/13/17 07:44 02/13/17 09:43 02/13/17 07:44 02/13/17 07:44 Oxygen Devices in Use Now: None Appearance: Well appearing, in NAD Neck: NL Appearance and Movements; NL JVP Respiratory: Symmetrical Chest Expansion and Respiratory Effort, Clear to Auscultation Cardiovascular: NL Sounds; No Murmurs; No JVD, RRR Abdominal: NL Sounds; No Tenderness; No Distention Extremities: - - trace to 1+ edema, L>R Skin: - - multiple areas of ecchymosis Neurological: Alert and Oriented x 3 Result Diagrams: 02/13/17 06:45 02/10/17 06:20 Assess/Plan/Problems-Billing Assessment: This is a 71 yo female with IDDM, HTN, asthma, HTN, HLD, ERA, hypothyroidism, diabetic neuropathy and morbid obesity who underwent L TKA by Dr Ortiz 02/09/17. Hospitalist group has been consulted for management of her comorbid conditions. - Patient Problems (1) Status post knee replacement Comment: POD #4 Discharge per ortho today (2) IDDM (insulin dependent diabetes mellitus) Comment: HgbA1c 01/02/17 9.3% Patient reports good glycemic control at home over the last few weeks Hyperglycemic postoperatively Lantus was increased to 20U with SS Humalog at mealtime, she may return to her usual insulin regimen at home with close follow up with her PCP (3) Hypertension Comment: Now normotensive Lisinopril and Bumex resumed (4) Asthma Comment: Mild persistent No acute exacerbation Cont albuterol prn (5) HLD (hyperlipidemia) (6) ERA (obstructive sleep apnea) Comment: Compliant with CPAP (7) Morbid obesity Comment: BMI 41 (8) Hypothyroidism Comment: Cont levothyroxine (9) Diabetic neuropathy (10) Full code status (11) DVT prophylaxis Comment: Coumadin per ortho Status and Disposition: Plan for discharge home today per ortho. No medical complications during hospital stay. No changes recommended to home medications.
--- NOTE | 2017-02-14 10:20 | DS ---
DISCHARGE SUMMARY: DATE OF ADMISSION: 02/09/17 DATE OF DISCHARGE: 02/13/17 ATTENDING PHYSICIAN: Scarlett Ortiz MD ADMISSION DIAGNOSIS: Severe end-stage degenerative osteoarthritis of the left knee with valgus deformity. DISCHARGE DIAGNOSIS: Severe end-stage degenerative osteoarthritis of the left knee with valgus deformity. SURGERY PERFORMED: Left total knee arthroplasty. HOSPITAL COURSE: The patient is a 71-year-old female with history of several years of severe left knee pain and valgus deformity. She failed conservative management with anti-inflammatories, pain medication, intra-articular cortisone injections, and physical therapy. She elected to proceed with total knee arthroplasty and was taken to the operating room on the date of 02/09/17 under the care of Dr. Scarlett Ortiz. She tolerated the procedure well and left the operating room in stable condition. Postoperatively, she progressed satisfactorily with her physical therapy and occupational therapy goals. She had no acute postoperative complications and was followed by the medical team for her multiple medical comorbidities, including insulin-dependent diabetes. She felt that she was still not strong enough and a little unstable on her feet postoperative day No. 3; therefore, her discharge was held an additional day, and she felt that her strength had improved and felt stable for discharge to home on the date of 02/13/17. CONDITION ON DISCHARGE: She is afebrile. Her vital signs are stable. Her left knee incision is healing without evidence of infection. There is no drainage or erythema. Her calf is mildly tender, but there is no edema. No skin color changes. Ziyad's sign is negative. She has active dorsiflexion, plantar flexion of the left ankle. She has a 2+ pedal pulse. PLAN: The patient will be discharged home today. She may continue to bear weight as tolerated in the left lower extremity. She will continue with her physical therapy exercise program. She will continue with Coumadin for her DVT prophylaxis. She will take 4 mg of Coumadin on 02/13/17; 2 mg on Monday , 02/14/17; and 2 mg on 02/15/17. She will have biweekly blood draws by home nursing on Mondays and . She will continue with the Colace and the Percocet prescriptions as already prescribed. She will follow up in the office in 10 [address] Ortiz. If there is any noted increased pain in the left knee, redness, drainage, swelling, calf pain or swelling, fever, chills, the office will be contacted prior to her scheduled appointment. KHARI EMMANUEL [id number]/[facility] #: [id number] NICOLE
== END 2017-02-13 13:40 | disposition home health service (06) | DRG 470 ==
LOC: AA 02-09 10:57 → SSU 02-09 21:26
PROVIDERS: ADMIT Orthopaedic Surgery Adult Reconstructive Orthopaedic Surgery; ATTEND Orthopaedic Surgery Adult Reconstructive Orthopaedic Surgery
PROC: 0SRD0J9 Replacement of Left Knee Joint with Synthetic Substitute, Cemented, Open Approach (ICD-10-PCS; principal; 2017-02-09 13:00)
DX: M17.12 Unilateral primary osteoarthritis, left knee (principal); I11.0 Hypertensive heart disease with heart failure; I50.9 Heart failure, unspecified; E11.40 Type 2 diabetes mellitus with diabetic neuropathy, unspecified; E11.65 Type 2 diabetes mellitus with hyperglycemia; Z68.41 Body mass index [BMI] 40.0-44.9, adult; E78.00 Pure hypercholesterolemia, unspecified; E03.9 Hypothyroidism, unspecified; E66.01 Morbid (severe) obesity due to excess calories; E78.5 Hyperlipidemia, unspecified; G47.33 Obstructive sleep apnea (adult) (pediatric); J45.30 Mild persistent asthma, uncomplicated; M21.062 Valgus deformity, not elsewhere classified, left knee; Z90.710 Acquired absence of both cervix and uterus; Z82.49 Family history of ischemic heart disease and other diseases of the circulatory system; Z83.3 Family history of diabetes mellitus; Z82.61 Family history of arthritis; Z80.1 Family history of malignant neoplasm of trachea, bronchus and lung; Z88.8 Allergy status to other drugs, medicaments and biological substances; Z88.1 Allergy status to other antibiotic agents
CPT/HCPCS: 36415; 80048; 85014; 85018; 85049; 85610; 94640; 94760; A9270-GY; C1776; J0360; J0690; J1100; J1170; J1650; J1885; J2250; J2405; J2704; J3010

== ENCOUNTER 2017-03-02 17:16 | Observation (INO) | payer MEDICARE ==
[2017-03-02] MEDS ORDERED: Dextrose 50% Syringe 50 ML* 25 GM/50 ML SYRINGE IV PUSH PRN (19:56)
[2017-03-02] MEDS ORDERED: Iodixanol* (CONTRAST) 320 MG/ML 100 ML SDV IV ONE (20:10)
[2017-03-02] MEDS ORDERED: Insulin GLARGINE(*) 1 UNITS UNIT SUBCUT SCH (21:00)
[2017-03-02] MEDS ORDERED: Albuterol HFA INHALER* 8 gm MDI INH SCH (21:00)
--- NOTE | 2017-03-02 21:22 | RAD ---
INDICATION: Atrial fibrillation COMPARISON: None TECHNIQUE: Axial source images were acquired following the administration of 94 mL of Visipaque [address] angiographic technique. Coronal and sagittal reconstructed images were constructed and reviewed. FINDINGS: There there are no filling defects in the pulmonary arteries to indicate acute pulmonary embolic disease. There are diffuse centrilobular emphysematous changes. There are no focal infiltrates or effusions. There are no pulmonary parenchymal masses. There is subpleural air cysts at the anterior right lung base. The heart is normal in size. There is no evidence of pericardial effusion. There is no evidence of aortic aneurysm or dissection. There is no mediastinal, hilar, or axillary lymphadenopathy. Multilevel degenerative change of the thoracic spine includes loss of intervertebral disc height and mild marginal osteophyte formation. Limited views of the upper abdomen show no abnormalities. IMPRESSION: 1. No CT of evidence of pulmonary embolism. 2. 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 3. Additional chronic and degenerative changes described in body the report.
[2017-03-02] MEDS ORDERED: Warfarin TAB(*) 4 MG PO ONE (22:00)
[2017-03-02] MEDS ORDERED: Rivaroxaban TAB(*) 20 MG TAB PO SCH (22:04)
[2017-03-02] MEDS: Diltiazem TAB* 30 MG PO SCH (22:17)
[2017-03-02] MEDS: oxyCODONE/Acetamin 5/325 MG* TAB PO PRN (23:00)
--- NOTE | 2017-03-02 23:05 | HP ---
HOSPITAL MEDICINE HISTORY AND PHYSICAL: DATE OF ADMISSION: 03/02/17 PRIMARY CARE PHYSICIAN: Dr. Nieves Kramer. ATTENDING PHYSICIAN: Dr. Dani Sahni *(dictation provided by Mildred Akers NP) CHIEF COMPLIANT: Generalized malaise and fatigue with rapid heart rate. HISTORY OF PRESENT ILLNESS: Ms. Turner is a 71-year-old female with a past medical history of diabetes, hypertension, and recent left total knee arthroplasty with Dr. Ortiz, who presents to the hospital from [facility] in transfer today. Ms. Turner was originally admitted to our hospital on 02/09/17 with plan for a left total knee arthroplasty. The patient did well and was discharged on 02/13/17. The patient states that she has been doing well at home and working well with physical therapy. She noted on Monday that she was feeling unwell. She describes a generalized feeling of malaise, tiredness, and nausea. There was no vomiting, no abdominal pain. She has been eating well, though her appetite has been a bit decreased. She has had normal formed bowel movements. She followed with her physical therapist on Monday and he noted that her heart rate was elevated when he palpated her wrist. He had a call into the visiting nurse service who followed up with the patient the following day and noted that the heart rate was running between 120s and 140s and was irregular. The patient's supervisor porcelain department, Dr. Kramer was contacted and encouragement was given to the patient to come to [facility] for evaluation. At [facility], she was confirmed to be in atrial fibrillation with a heart rate running into the 130s. She also had an elevated D-dimer at 1410 and a subtherapeutic INR though on Coumadin for DVT prophylaxis. Her INR is 1.17. Remainder of her workup was unremarkable, but based on the need for workup of AFib and possible pulmonary embolism with need for CETA of the chest, our plans were made for her to be transferred to [facility]. The patient specifically denied any chest pain or shortness of breath or cough. PAST MEDICAL HISTORY: 1. History of left total knee arthroplasty on 02/09/17. 2. Hypertension. 3. Insulin-dependent diabetes. 4. Chronic suspected diastolic congestive heart failure, on chronic diuretic therapy. 5. Hyperlipidemia. 6. History of left elbow injury. 7. History of hiatal hernia repair. 8. Tonsillectomy. 9. Hysterectomy. 10. Bladder repair. 11. . 12. Toe amputation. MEDICATIONS: 1. Albuterol 2 puffs inhaled at bedtime. 2. Atorvastatin 10 mg p.o. q.p.m. 3. B complex one cap p.o. q.a.m. 4. Bumetanide 1 mg p.o. q.a.m. 5. Cholecalciferol 1000 units p.o. every morning. 6. Glipizide 10 mg p.o. p.o. b.i.d. 7. Lantus insulin 14 units subcutaneously at bedtime. 8. Levothyroxine 75 mcg p.o. Monday, Monday, and Monday and 50 mcg on Monday , Monday, , and Monday. 9. Lisinopril 5 mg p.o. every morning. 10. Multivitamin with mineral 1 tab p.o. q.a.m. 11. Morphine 2 mg p.o. daily. 12. Oxycodone 5/325 mg one tab p.o. q.3 hours p.r.n. ALLERGIES: To ADHESIVE TAPES, AMLODIPINE, CEFACLOR, FLUTICASONE, SOLU-MEDROL, ROFECOXIB, OFLOXACIN, METFORMIN, INDOMETHACIN. FAMILY HISTORY: Reviewed and noncontributory. SOCIAL HISTORY: No report of alcohol, tobacco, or drug use. The patient states her is the healthcare proxy. REVIEW OF SYSTEMS: A 14-point review of systems was completed with Ms. Turner and all those not mentioned above were negative. PHYSICAL EXAMINATION GENERAL: Ms. Turner is sitting up in the bed. She is in no acute distress. She is calm and cooperative with my examination. VITAL SIGNS: Temperature 98.6, pulse rate 98, respiratory rate 16, O2 saturation 100% on room air, blood pressure 129/80. LUNGS: Clear to auscultation bilaterally with no accessory muscle use and good aeration. HEART: S1 and S2. No murmur, rub, gallop, and regular. ABDOMEN: Soft and nontender with bowel sounds positive x4. EXTREMITIES: No cyanosis or edema. NEURO: She is alert and oriented x3. She moves all extremities equally. There is no facial asymmetry or focal weakness. Extraocular movements are intact. SKIN: Intact. DIAGNOSTIC STUDIES/LAB DATA: Date from [facility], patient had WBC of 7.44, hemoglobin 11.2, hematocrit 34.6, platelet count 447. Her INR is 1.17. D- dimer is 1410. Glucose 172, BUN 18, creatinine 1.3, sodium 138, potassium 4.2, chloride 101, serum bicarbonate 28. Troponin 0.02. EKG shows atrial fibrillation with a heart rate of 136. ASSESSMENT AND PLAN: Ms. Turner is a 71-year-old female with a past medical history of left total knee arthroplasty with Dr. Ortiz 3 weeks ago as well as hypertension and diabetes, who presents today at the hospital with concern for generalized malaise after being found to be in atrial fibrillation with an elevated D-dimer and subtherapeutic INR. Her plans are as follows: 1. Atrial fibrillation. It is unclear why the patient has gone into atrial fibrillation today. She is certainly at high risk for pulmonary embolism given her recent surgery and subtherapeutic INR. Our plan will be for CTA chest if she is able to go for that given her GFR. medical technologist clinical is reviewing that right now. The patient is rate controlled at approximately 100 at this point. Plan to start a low dose of Cardizem. She does have a history of asthma and I think a beta-mónica would be inappropriate. The patient is not a heavy caffeine drinker. She does not drink alcohol. She has a history of asthma, for which she takes albuterol inhaler at night only, which she states has been more related to allergies. She has no history of chronic obstructive pulmonary disease. If she does have a pulmonary embolism, we will have to address that separately. In terms of her atrial fibrillation, we will look to rate control and then we will also need to consider anticoagulation. At this time, her INR is subtherapeutic. I am holding the Coumadin and waiting the results of the CTA. 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 2. Elevated D-dimer, again question of pulmonary embolism. Plan to check CTA of chest now. 3. Diabetes. Plan to continue with her home Lantus and she will have blood glucoses q.a.c. with lispro sliding scale insulin. 4. Hypertension. Plan to continue her lisinopril and Bumex. She does have good pressure now systolic at 129 and again I am ordering Cardizem low dose 30 mg q.6 hours for rate control. 5. Code status is full code. 4. DVT prophylaxis with SCDs and likely will go on to start either heparin subcu or Xarelto pending the results of the CTA chest. TIME SPENT: Approximately 60 minutes were spent on the admission of this patient, more than half the time was spent with her at the bedside reviewing the events leading up to this hospitalization, performing the physical examination, and reviewing my plan of care. MILDRED AKERS NP CC: Dr. Nieves Kramer * [id number]/CPS #: [id number] NICOLE
[2017-03-03] MEDS: oxyCODONE/Acetamin 5/325 MG* TAB PO PRN ×2 (03:33→16:40)
[2017-03-03 05:24] LABS: Hematocrit 30 % (35-47); Hemoglobin 9.9 g/dl (12.0-16.0); Mean Corpuscular HGB Conc 33 g/dl (31-36); Mean Corpuscular Hemoglobin 29 pg (27-31); Mean Corpuscular Volume 88 fL (80-97); Mean Platelet Volume 8 um3 (7.4-10.4); Red Blood Count 3.41 10^6/ul (4.0-5.4); Red Cell Distribution Width 14 % (10.5-15); White Blood Count 6.5 10^3/ul (3.5-10.8)
[2017-03-03] MEDS: Diltiazem TAB* 30 MG PO SCH (05:35)
[2017-03-03 05:46] LABS: BUN/Creatinine Ratio 18.9 (8-20); EGFR African American 79.2 (>60); EGFR Non-African American 61.5 (>60); Potassium 3.8 mmol/L (3.5-5.0)
[2017-03-03] MEDS ORDERED: Levothyroxine TAB* 75 MCG TAB PO SCH (06:00)
[2017-03-03 07:52] LABS: Magnesium 1.9 mg/dL (1.9-2.7)
[2017-03-03] MEDS: Insulin LISPRO* 1 UNITS UNIT SUBCUT SCH ×3 (07:56→13:13)
[2017-03-03] MEDS ORDERED: Potassium Chlor TAB* 20 MEQ TAB.ER PO ONE (08:02)
[2017-03-03 08:25] LABS: TSH (Thyroid Stimulating Horm) 1.09 mcIU/mL (0.34-5.60)
[2017-03-03] MEDS ORDERED: Bumetanide TAB* 1 MG PO SCH (09:00)
[2017-03-03] MEDS ORDERED: Lisinopril TAB* 5 MG PO SCH (09:00)
[2017-03-03] MEDS ORDERED: Diltiazem CD CAP* 180 MG PO SCH (09:00)
--- NOTE | 2017-03-03 14:06 | ECHO ---
Patient: GENARO CUEVAS [facility] Rec#: [id number] : 1945 Date: 03/03/2017 Age: 71y Height: 171.45 cm / 67.5 in Weight: 121.11 kg / 266.9 lbs Sex: F BSA: 2.3 Room#: [facility] Admit Date#: 03/02/2017 Type: Inpatient Referring: Mildred Akers NP Reading: Jaquelin Bardales MD Thread Roller: Alicia Wood Thread Roller: Lou Gaines RDCS CC: Nieves Kramer MD Transthoracic Echocardiogram Indication: A-fib BP: 108/65 HR: 97 Rhythm: A-Fib Indications Atrial Fibrillation Findings History: HTN, DM, HLD, left knee total arthoplasty 02/09/17. Technical Comments: The study quality is good. The study is technically limited due to patient body habitus. Completed at 1330. Left Ventricle: The left ventricular chamber size is normal. Mild to moderate concentric left ventricular hypertrophy is observed. Global left ventricular wall motion and contractility are within normal limits. Left ventricular systolic function is at the lower limits of normal. The estimated ejection fraction is 50-55%. The assessment of diastolic function is non-diagnostic. Left Atrium: The left atrium is mildly dilated. Right Ventricle: The right ventricular cavity size is normal. The right ventricular global systolic function is normal. Right Atrium: The right atrium is slightly dilated. A prominent eustachian valve is noted in the right atrium. Aortic Valve: The aortic valve is trileaflet. The aortic valve leaflets are mildly thickened. There is no evidence of aortic regurgitation. There is no evidence of aortic stenosis. Mitral Valve: The mitral valve leaflets are mildly thickened. There is mild mitral regurgitation. There is no evidence of mitral stenosis. Tricuspid Valve: The tricuspid valve leaflets are normal. There is mild to moderate tricuspid regurgitation. There is evidence of mild pulmonary hypertension. Pulmonic Valve: The pulmonic valve appears normal. There is trace to mild pulmonic regurgitation. There is no pulmonic stenosis. Pericardium: There is no significant pericardial effusion. A pericardial fat pad is visualized. Aorta: There is no dilatation of the ascending aorta. There is no dilatation of the aortic arch. There is no dilation of the aortic root. There is plaque visualized in the ascending aorta. Pulmonary Artery: The main pulmonary artery appears normal. Venous: The inferior vena cava is dilated. There is a greater than 50% respiratory change in the inferior vena cava dimension. Summary: There was not any prior study for comparison. Conclusions The left ventricular chamber size is normal. Mild to moderate concentric left ventricular hypertrophy is observed. Left ventricular systolic function is at the lower limits of normal. The estimated ejection fraction is 50-55%. The assessment of diastolic function is non-diagnostic. The left atrium is mildly dilated. The right atrium is slightly dilated. There is mild mitral regurgitation. There is mild to moderate tricuspid regurgitation. There is evidence of mild pulmonary hypertension. There is trace to mild pulmonic regurgitation. Measurements Name Value Normal Range RVIDd (AP) 2D 2.4 cm (0.9 - 2.6) RVDdMajor (2D) 3.9 cm (2.2 - 4.4) RAd ISD 4CH 5.1 cm (3.4 - 4.9) RA (A4C)W 3.9 cm (2.9 - 4.6) IVSd (2D) 1.4 cm (0.6 - 1) LVPWd (2D) 1.2 cm (0.6 - 1) LVIDd (2D) 3.8 cm (3.6 - 5.4) LVIDs (2D) 2.4 cm - LV FS (2D) 35 % (25 - 45) Aortic Annulus 1.8 cm (1.4 - 2.6) Ao root diameter (2D) 2.9 cm (2.1 - 3.5) Ascending Ao 3 cm (2.1 - 3.4) Aortic arch 2.2 cm (1.8 - 3.4) LA dimension (AP) 2D 3.9 cm (2.3 - 3.8) LAd ISD 4CH 5.5 cm (2.9 - 5.3) LA ISD 4CH W 5.1 cm (2.5 - 4.5) Name Value Normal Range LA ESV SP 4CH (A/L) 87 ml - LA ESV SP 2CH (A/L) 84 ml - LA ESV BP (A/L) 87 ml - LA ESV BP (A/L) index 37.71 ml/m2 - LA ESV SP 4CH (MOD) 85 ml - LA ESV SP 2CH (MOD) 79 ml - Name Value Normal Range MV E-wave Vmax 0.97 m/sec - MV deceleration time 175.2 msec - LV septal e' Vmax 0.1 m/sec - LV lateral e' Vmax 0.09 m/sec - LV E:e' septal ratio 9.7 ratio - LV E:e' lateral ratio 10.78 ratio - Name Value Normal Range AV Vmax 1.2 m/sec - AV VTI 22.03 cm - AV peak gradient 5.32 mmHg - AV mean gradient 3.39 mmHg - LVOT Vmax 0.8 m/sec - LVOT VTI 16.9 cm - LVOT peak gradient 2.87 mmHg - LVOT mean gradient 1.68 mmHg - REGINA Vmax 0.46 m/sec - Name Value Normal Range TR Vmax 2.7 m/sec - TR peak gradient 29 mmHg - RAP 8 mmHg - RVSP 37 mmHg - IVC diameter 2.7 cm - Name Value Normal Range PV Vmax 0.7 m/sec - PV peak gradient 2.23 mmHg -
[2017-03-03 16:06] VITALS: BP 114/66
[2017-03-03] MEDS ORDERED: Warfarin TAB(*) 2 MG PO SCH (17:00)
[2017-03-03] MEDS ORDERED: Warfarin TAB(*) 3 MG PO SCH (17:00)
[2017-03-03] MEDS ORDERED: Atorvastatin* 10 MG TAB PO SCH (18:00)
--- NOTE | 2017-03-04 04:57 | DS ---
DISCHARGE SUMMARY: DATE OF ADMISSION: 03/02/17 DATE OF DISCHARGE: 03/03/17 PRIMARY CARE PROVIDER: Dr. Nieves Kramer. DISCHARGE DIAGNOSIS: Atrial fibrillation with rapid ventricular response. SECONDARY DIAGNOSES: 1. History of left total knee arthroplasty on 02/09/17. 2. Obstructive sleep apnea, on CPAP. 3. Hypertension. 4. Diabetes, on insulin. 4. Chronic diastolic congestive heart failure. 5. Hyperlipidemia. 6. Left elbow injury. 7. Hiatal hernia repair. 8. Tonsillectomy. 9. Hysterectomy. 10. Bladder repair. 11. . 12. Status post toe amputation in the past. MEDICATIONS AT DISCHARGE: Include: 1. Levothyroxine 50 mcg Sundays, Tuesdays, , and Saturdays and 75 mcg on the remaining days of the week. 2. Albuterol inhaler 2 puffs inhalation at bedtime. 3. Lipitor 10 mg daily. 4. Vitamin B complex 1 capsule daily. 5. Bumetanide 1 mg daily. 6. Vitamin D3 1000 units daily. 7. Cardizem CD 180 mg daily. 8. Glipizide 10 mg b.i.d. 9. Insulin glargine 14 units daily. 10. Multivitamin 1 tablet daily. 11. Coumadin as previously taken. LABORATORY DATA AND STUDIES PERFORMED DURING THE HOSPITAL STAY: Included: TSH was 1.09. Magnesium 1.9. Sodium of 136, potassium 3.8, chloride 106, carbon dioxide 25, BUN 17, and creatinine 0.9. White blood cell count of 6.5, hemoglobin of 9.9, hematocrit 30, and platelets of 339. INR was 2.77. CT angiogram of the chest, impression: "No CT evidence of pulmonary embolism. Subpleural bulla are noted at the anterior right lung base likely a chronic finding. Additional chronic and degenerative changes described in the body of the report." Transthoracic echocardiogram obtained on 03/03/17 showed [id number] concentric LVH with EF of 50% to 55%. The right atrium is slightly dilated, left atrium mildly dilated, mild mitral regurgitation, moderate tricuspid regurgitation, mild pulmonary hypertension, and mild pulmonary regurgitation. HOSPITALIZATION COURSE: Mirella Turner is a 71-year-old female with a history of recent knee surgery on the left side who presented to the hospital complaining of palpitations and generalized weakness and she was noted to be in atrial fibrillation with rapid ventricular response. She was noted to have a mild elevation of creatinine at admission into the [facility] at 1.3 and due to that, the facility did not feel comfortable to perform the CT angiogram of the chest and the patient was transferred to our facility for further evaluation. Here CT angiogram of the chest was performed and showed no PE. The patient continued to be in atrial fibrillation with rate controlled once placed on Cardizem CD. Her creatinine improved to 0.9 at the time of discharge after the GINI inhibitor was discontinued. The GINI inhibitor was also discontinued due to relatively low systolic pressures Cardizem. I curbsided Dr. Bardales in regards to the patient's care. It was recommended for the patient to have transthoracic echocardiogram, which was performed and was grossly unremarkable. The patient also had TSH checked, which was unremarkable. It was recommended for the patient to continue with rate control and continue anticoagulation with Coumadin. The patient was recommended to follow up with Dr. Bardales in approximately 1 month. The patient was also recommended to follow up with Dr. Kramer in approximately 4 to 7 days. Please also note the patient has a history of obstructive sleep apnea and she had not been using her CPAP postoperatively, which may have been the cause of the patient's atrial fibrillation. PHYSICAL EXAMINATION AT THE TIME OF DISCHARGE: Vital signs: Blood pressure of 114/66, heart rate of 96 and irregularly irregular, respiratory rate 20, oxygen saturation 97% on room air, and temperature 98.6. General: The patient is a very pleasant 71-year-old obese female, who is in no acute distress. Alert, awake, and oriented x3. HEENT: Head is atraumatic, normocephalic. Eyes: Pupils are equal and reactive to light and accommodation. Oropharynx clear. Mucosa moist. Neck: Supple. No JVD. No bruits bilaterally. Respiratory: Clear to auscultation bilaterally. Cardiovascular: Irregular rhythm. No murmur. Abdomen: Soft, nontender. Bowel sounds present in all 4 quadrants. Extremities: There is bilateral trace pedal edema. Pulses present 2+ bilaterally. There is no clubbing or cyanosis. Neuro Evaluation: Speech clear. Cranial nerves II through XII grossly intact. Motor strength is 5/5 bilaterally. Skin: On evaluation of the skin, the postsurgical scar on the left knee is well healed. There is no evidence of dehiscence. No evidence of wound infection. Please note this is a short summary of the patient's hospital stay. Please refer to further medical records for details. CC: Dr. Nieves Kramer; Dr. Bardales; Dr. Ortiz* [id number]/CPS #: [id number] MTDD
[2017-03-04] MEDS ORDERED: Levothyroxine TAB* 50 MCG TAB PO SCH (06:00)
== END 2017-03-03 17:14 | disposition home or self-care (01) ==
LOC: MEDTELE 18:32
PROVIDERS: ADMIT Internal Medicine; ATTEND Internal Medicine
DX: I48.91 Unspecified atrial fibrillation (principal); Z96.652 Presence of left artificial knee joint; G47.33 Obstructive sleep apnea (adult) (pediatric); I10 Essential (primary) hypertension; E11.9 Type 2 diabetes mellitus without complications; Z79.4 Long term (current) use of insulin; I50.32 Chronic diastolic (congestive) heart failure; E78.5 Hyperlipidemia, unspecified; Z89.429 Acquired absence of other toe(s), unspecified side
CPT/HCPCS: 36415; 71275; 80048; 83735; 84443; 85025; 85610; 93005; 93306; 94640; 96374; A9270-GY; G0378; G8978-GP-CI; G8979-GP-CI; G8980-GP-CI; Q9967

== ENCOUNTER 2021-03-04 11:21 | Inpatient (IN) ==
[2021-03-04] MEDS ORDERED: Albuterol/Ipratropium NEB.SOL (2.5/0.5 MG) 3 ML NEB.SOLN INH SCH ×2 (14:15→15:00)
[2021-03-04 15:53] LABS: INR 2.46 (0.82-1.09)
[2021-03-04 16:13] LABS: Albumin 2.6 g/dL (3.2-5.2); Albumin/Globulin Ratio 0.8 (1-3); Calcium 7.6 mg/dL (8.6-10.3); EGFR African American 31.1 (>60); EGFR Non-African American 25.7 (>60); Globulin 3.1 g/dL (2-4); Potassium 4.3 mmol/L (3.5-5.0); Total Bilirubin 0.7 mg/dL (0.2-1.0); Total Protein 5.7 g/dL (6.4-8.9)
[2021-03-04] MEDS: fentaNYL 100 mcg/2 ml 50 MCG/ML VIAL ONE ×2 (16:40→16:44)
[2021-03-04] MEDS: Midazolam 5 mg/5 ml VIAL 1 mg/ml 5 ml VIAL (5 mg) ONE ×2 (16:40→16:44)
[2021-03-04] MEDS ORDERED: Midazolam 2 mg/2 ml VIAL 1 mg/ml 2 ml VIAL (2 mg) IV SLOW PU ONE (16:54)
[2021-03-04] MEDS ORDERED: fentaNYL 100 mcg/2 ml 50 MCG/ML VIAL IV SLOW PU ONE (16:55)
[2021-03-04 17:29] LABS: ABS Lymphocytes 0.3 10^3/ul (1.0-4.8); ABS Monocytes 0.6 10^3/ul (0-0.8); ABS Neutrophils 7.1 10^3/ul (1.5-7.7); Hematocrit 32 % (35-47); Hemoglobin 10.9 g/dL (12.0-16.0); Lymphocyte % 3.3 %; Mean Corpuscular HGB Conc 35 g/dL (31-36); Mean Corpuscular Hemoglobin 32 pg (27-31); Mean Corpuscular Volume 92 fL (80-97); Mean Platelet Volume 10.6 fL (7.4-10.4); Platelet Count 80 10^3/uL (150-450); Red Blood Count 3.45 10^6 /uL (3.70-4.87); Red Cell Distribution Width 15 % (10-15)
[2021-03-04 17:54] LABS: Troponin I 0.01 ng/mL (<0.03)
[2021-03-04] MEDS ORDERED: Azithromycin 500 mg/250 ml NS 500 MG/250 ML BAG IVPB SCH (18:00)
[2021-03-04] MEDS: cefTRIAXone 1 gm/50 mL NS BAG 1 GM/50 ML BAG IVPB SCH (18:29)
[2021-03-04 18:37] LABS: Activated Partial Thrombo Time 32.2 seconds (26.0-38.0)
[2021-03-04 18:38] LABS: Fibrinogen > 521.3 mg/dL (110.8-404.3)
[2021-03-04 19:02] LABS: Schistocytes ABSENT
[2021-03-04 19:05] LABS: Platelet Count 79 10^3/ul (150-450)
[2021-03-04] MEDS: Albuterol/Ipratropium NEB.SOL (2.5/0.5 MG) 3 ML NEB.SOLN INH SCH ×2 (19:10→23:15)
[2021-03-04] MEDS ORDERED: FLECAINIDE 150 MG PO SCH (21:00)
[2021-03-05] MEDS: Albuterol/Ipratropium NEB.SOL (2.5/0.5 MG) 3 ML NEB.SOLN INH SCH ×3 (02:59→11:24)
[2021-03-05] MEDS ORDERED: NS 0.9% 250 ml 250 ML IV ONE (03:18)
[2021-03-05] MEDS: Metoprolol Tartrate 5 mg VIAL 5 ml VIAL (1 mg/ml) IV PRN ×2 (04:49→10:48)
[2021-03-05 05:12] LABS: ABS Lymphocytes 0.2 10^3/ul (1.0-4.8); ABS Monocytes 0.5 10^3/ul (0-0.8); ABS Neutrophils 7.2 10^3/ul (1.5-7.7); Eosinophil % 0.6 %; Hematocrit 32 % (35-47); Hemoglobin 10.8 g/dL (12.0-16.0); Lymphocyte % 2.3 %; Mean Corpuscular HGB Conc 34 g/dL (31-36); Mean Corpuscular Hemoglobin 31 pg (27-31); Mean Corpuscular Volume 92 fL (80-97); Mean Platelet Volume 10.6 fL (7.4-10.4); Platelet Count 88 10^3/uL (150-450); Red Cell Distribution Width 15 % (10-15); White Blood Count 7.9 10^3/uL (3.5-10.8)
[2021-03-05 05:31] LABS: Calcium 7.5 mg/dL (8.6-10.3); EGFR African American 21.7 (>60); EGFR Non-African American 17.9 (>60); Magnesium 1.8 mg/dL (1.9-2.7); Phosphorus 2.7 mg/dL (2.5-5.0); Potassium 4.1 mmol/L (3.5-5.0)
[2021-03-05] MEDS ORDERED: Digoxin IV 0.5 MG/2 ML AMP (0.25 MG/ML) IV SLOW PU ONE ×3 (07:11→20:30)
[2021-03-05] MEDS ORDERED: Magnesium Sulfate 2 gm BAG 2 GM/50 ML BAG IVPB ONE (07:28)
[2021-03-05] MEDS: NORMOSOL-R pH 7.4 1000 mL BAG 1,000 ML IV SCH (09:25)
[2021-03-05 11:26] LABS: TSH Ultra Thyroid Stim Horm 0.23 mcIU/mL (0.34-5.60)
[2021-03-05] MEDS: Famotidine IV 10 MG/ML 2 ml VIAL (20 mg) IV SLOW PU SCH (12:06)
[2021-03-05] MEDS ORDERED: Albuterol/Ipratropium NEB.SOL (2.5/0.5 MG) 3 ML NEB.SOLN INH PRN (13:55)
[2021-03-05 14:25] LABS: Free T4 0.88 ng/dL (0.61-1.12)
[2021-03-05] MEDS ORDERED: Metoprolol Tartrate 5 mg VIAL 5 ml VIAL (1 mg/ml) IV PRN (14:44)
[2021-03-05] MEDS: cefTRIAXone 1 gm/50 mL NS BAG 1 GM/50 ML BAG IVPB SCH (16:55)
[2021-03-06] MEDS ORDERED: Digoxin IV 0.5 MG/2 ML AMP (0.25 MG/ML) IV SLOW PU ONE (05:00)
[2021-03-06 05:06] LABS: Hematocrit 31 % (35-47); Hemoglobin 10.8 g/dL (12.0-16.0); Mean Corpuscular HGB Conc 35 g/dL (31-36); Mean Corpuscular Hemoglobin 32 pg (27-31); Mean Corpuscular Volume 91 fL (80-97); Platelet Count 77 10^3/uL (150-450); Red Blood Count 3.43 10^6 /uL (3.70-4.87); Red Cell Distribution Width 15 % (10-15); White Blood Count 5.1 10^3/uL (3.5-10.8)
[2021-03-06 05:21] LABS: Calcium 7.3 mg/dL (8.6-10.3); EGFR African American 21.1 (>60); EGFR Non-African American 17.4 (>60); Magnesium 2.5 mg/dL (1.9-2.7); Phosphorus 2.8 mg/dL (2.5-5.0)
[2021-03-06] MEDS: NORMOSOL-R pH 7.4 1000 mL BAG 1,000 ML IV SCH (05:24)
[2021-03-06 05:49] LABS: Hepatitis B Surface Antigen Nonreactive (Nonreactive)
[2021-03-06 05:54] LABS: Hepatitis A Ab IgM Negative (Negative); Hepatitis B Core IgM Nonreactive (Nonreactive)
[2021-03-06 06:06] LABS: Hepatitis C Antibody Negative (Negative)
[2021-03-06] MEDS: Famotidine IV 10 MG/ML 2 ml VIAL (20 mg) IV SLOW PU SCH (08:43)
[2021-03-06] MEDS ORDERED: Insulin GLARGINE 100 un/ml 10 ml VIAL SUBCUT SCH (09:00)
[2021-03-06 20:53] LABS: Glucose Confirmatory 430 mg/dL (70-100)
[2021-03-07 05:16] LABS: Hematocrit 32 % (35-47); Hemoglobin 10.9 g/dL (12.0-16.0); Mean Corpuscular HGB Conc 34 g/dL (31-36); Mean Corpuscular Hemoglobin 31 pg (27-31); Mean Corpuscular Volume 91 fL (80-97); Platelet Count 92 10^3/uL (150-450); Red Blood Count 3.52 10^6 /uL (3.70-4.87); Red Cell Distribution Width 15 % (10-15); White Blood Count 4.8 10^3/uL (3.5-10.8)
[2021-03-07 05:31] LABS: Calcium 7.6 mg/dL (8.6-10.3); EGFR Non-African American 23.2 (>60); Magnesium 2.2 mg/dL (1.9-2.7); Phosphorus 2.5 mg/dL (2.5-5.0); Potassium 4.2 mmol/L (3.5-5.0)
[2021-03-07] MEDS ORDERED: Insulin GLARGINE 100 un/ml 10 ml VIAL ONE (07:53)
[2021-03-07] MEDS: Famotidine IV 10 MG/ML 2 ml VIAL (20 mg) IV SLOW PU SCH (07:54)
[2021-03-07] MEDS: Insulin GLARGINE 100 un/ml 10 ml VIAL SUBCUT SCH (07:58)
[2021-03-07] MEDS ORDERED: Dextrose 50% Syringe 50 ml 25 GM/50 ML SYRINGE IV PUSH PRN ×2 (17:23→20:40)
[2021-03-07 17:58] LABS: Glucose Confirmatory 416 mg/dL (70-100)
[2021-03-07 20:29] LABS: Glucose Confirmatory 417 mg/dL (70-100)
[2021-03-07] MEDS: Senna TAB 8.6 mg TAB PO SCH (21:09)
[2021-03-07 22:09] LABS: Anaplasma phagocytophilum Positive (Negative); B. miyamotoi PCR, B Negative (Negative); Babesia divergens/MO-1 Negative (Negative); Babesia ducani Negative (Negative); Ehrlichia chaffeensis Negative (Negative); Ehrlichia ewingii/canis Negative (Negative); Ehrlichia muris eauclairensis Negative (Negative)
[2021-03-08 05:04] LABS: Calcium 7.9 mg/dL (8.6-10.3); EGFR African American 39.3 (>60); EGFR Non-African American 32.5 (>60); Potassium 4.2 mmol/L (3.5-5.0)
[2021-03-08 05:05] LABS: Digoxin 1.2 ng/ml (0.8-2.0)
[2021-03-08] MEDS: Insulin GLARGINE 100 un/ml 10 ml VIAL SUBCUT SCH (09:35)
[2021-03-08 13:50] LABS: Hematocrit 33 % (35-47); Hemoglobin 11.5 g/dL (12.0-16.0); Mean Corpuscular HGB Conc 34 g/dL (31-36); Mean Corpuscular Hemoglobin 31 pg (27-31); Mean Corpuscular Volume 90 fL (80-97); Mean Platelet Volume 10.5 fL (7.4-10.4); Platelet Count 123 10^3/uL (150-450); Red Cell Distribution Width 14 % (10-15); White Blood Count 4.8 10^3/uL (3.5-10.8)
[2021-03-08 15:06] LABS: ABS Lymphocytes 0.9 10^3/ul (1.0-4.8); ABS Monocytes 0.8 10^3/ul (0-0.8); ABS Neutrophils 3.1 10^3/ul (1.5-7.7); Eosinophil % 0.6 %; Lymphocyte % 18.3 %; Nucleated Red Blood Cells % 0.1
[2021-03-08] MEDS: Senna TAB 8.6 mg TAB PO SCH (21:09)
[2021-03-09 05:43] LABS: Hematocrit 32 % (35-47); Hemoglobin 10.8 g/dL (12.0-16.0); Mean Corpuscular HGB Conc 33 g/dL (31-36); Mean Corpuscular Hemoglobin 30 pg (27-31); Mean Corpuscular Volume 91 fL (80-97); Mean Platelet Volume 9.9 fL (7.4-10.4); Platelet Count 136 10^3/uL (150-450); Red Blood Count 3.58 10^6 /uL (3.70-4.87); Red Cell Distribution Width 14 % (10-15); White Blood Count 4.2 10^3/uL (3.5-10.8)
[2021-03-09 05:58] LABS: Albumin 2.1 g/dL (3.2-5.2); Albumin/Globulin Ratio 0.6 (1-3); Calcium 7.8 mg/dL (8.6-10.3); EGFR Non-African American 41.3 (>60); Globulin 3.6 g/dL (2-4); Total Bilirubin 0.7 mg/dL (0.2-1.0); Total Protein 5.7 g/dL (6.4-8.9)
[2021-03-09 07:04] LABS: ABS Lymphocytes 1.2 10^3/ul (1.0-4.8); ABS Monocytes 0.8 10^3/ul (0-0.8); ABS Neutrophils 2.1 10^3/ul (1.5-7.7); Eosinophil % 1.2 %; Lymphocyte % 29.4 %; Nucleated Red Blood Cells % 0.1
[2021-03-09] MEDS ORDERED: Insulin GLARGINE 100 un/ml 10 ml VIAL SUBCUT ONE (09:00)
[2021-03-09] MEDS ORDERED: Polyethylene Glycol 3350 17 GM PACKET PO PRN (09:05)
[2021-03-09 19:58] LABS: Glucose Confirmatory 403 mg/dL (70-100)
[2021-03-09] MEDS ORDERED: Insulin GLARGINE 100 un/ml 10 ml VIAL SUBCUT SCH (21:00)
[2021-03-09] MEDS: Senna TAB 8.6 mg TAB PO SCH (21:05)
[2021-03-10 15:07] VITALS: BP 157/75
[2021-03-12 01:02] LABS: IgG Immunoblot Negative (Negative); IgM Immunoblot Negative (Negative)
== END 2021-03-10 14:40 | disposition swing bed (61) | DRG 308 ==
LOC: ICU 14:01 → MEDTELE 03-07 15:10
PROVIDERS: ADMIT Internal Medicine; ATTEND Internal Medicine